=== PATIENT | male | born 1950 | race Hispanic/Latino ===

== ENCOUNTER → 2019-01-24 | Outpatient (CLI) | payer MEDICARE ==
[~2019-01-24] MED LIST: AMLO5TAB9 PO; ASPI-555 PO; CILO50TA PO; CLOP75TA32 PO; HYDR25TA PO; ISOS30TA6 PO; METO-409 PO; PARI1CAP3 PO; SIMV40TA59 PO; TAMS0.4C32 PO
--- NOTE | 2019-01-24 10:00 | NUR ---
MBSS COMPLETED. DEEP NON-TRANSIENT PENETRATION WITH THIN LIQUIDS. RECOMMEND MECHANICAL SOFT/GROUND, NECTAR-THICK LIQUIDS; PILLS WHOLE WITH LIQUIDS. PATIENT INFORMATION: Pt IS A 68 YEAR OLD MALE REFERRED FOR AN MBSS SECONDARY TO COUGHING WITH THIN LIQUIDS. Pt ACCOMPANIED BY SISTER DURING THE EVALUATION. Pt REPORTS THAT HE COUGHS WHEN HE DRINKS LIQUIDS AND FEELS ITCHY SENSATION. 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 PLEASE NOTE Pt IS EDENTULOUS AND COMPLETED MBSS WITH NO DENTURES IN PLACE. SISTER STATES THAT IN THE HOME Pt IS GIVEN SOFT SOLIDS TO COMPENSATE FOR POOR DENTITION. MBSS INTERPRETATION: Pt PRESENTS WITH MODERATE PHARYNGEAL DYSPHAGIA CAUSED BY DECREASED TONGUE BASE RETRACTION, DELAYED PHARYNGEAL RESPONSE AND DECREASED LARYNGEAL ADDUCTION, E/B POOLING IN THE VALLECUL[place] WITH MILD RESIDUE (CLEARED WITH LIQUID WASH). RESULTING IN DEEP NON-TRANSIENT PENETRATION (SILENT-NO COUGH RESPONSE OR THROAT CLEAR). OBSERVATION: NARROWING WITHIN PHARYNX, ALLOWING BOLUS TRANSIT. CHIN TUCK ATTEMPTED AND NOT SUCCESSFUL. TRIALS: 1. TSP PUREED: GOOD 2. TSP PUDDING: GOOD 3. MIXED: DIFFICULTY MASTICATING WITH NO DENTITION IN PLACE 4. THIN LIQUIDS VIA CUP SIP: DEEP NON-TRANSIENT PENETRATION 5. THIN LIQUIDS VIA CUP SIP WITH CHIN TUCK: DEEP PENETRATION 6, NECTAR-THICK LIQUIDS VIA CUP SIP: GOOD RECOMMENDATIONS: 1. MECHANICAL SOFT/GROUND, NECTAR-THICK LIQUIDS; PILLS WHOLE WITH LIQUIDS 2. COMPENSATORY STRATEGIES: *SEATED AT 90 *SMALL BITES AND SIPS *NO STRAW *ALTERNATE BITES AND SIPS 3. SPEECH THERAPY TARGETING SWALLOWING. EDUCATION: PATIENT SCHEDULING MANAGER EDUCATED Pt AND SISTER ON RISKS AND CONSEQUENCES OF ASPIRATION. THEY WERE WERE PROVIDED WITH A WRITTEN HANDOUT OF RESULTS AND RECOMMENDATIONS. A CAN ON THICKENER WAS PROVIDED WITH INSTRUCTION ON HOW TO REACH NECTAR-THICK LIQUIDS. THEY VERBALIZED UNDERSTANDING AND COMPLIANCE WITH RECOMMENDATIONS. ALL QUESTIONS ANSWERED AT THIS TIME. G-CODES SWALLOWING: [id number] Addendum: 01/24/19 at 1517 by VENESSA CANALES, [facility] Amended: Links added.
== END | disposition home or self-care (01) ==
LOC: RAH 08:58
PROVIDERS: ATTEND Internal Medicine
DX: R13.13 Dysphagia, pharyngeal phase (principal); R63.3 Feeding difficulties; R05 Cough; E78.5 Hyperlipidemia, unspecified; I25.10 Atherosclerotic heart disease of native coronary artery without angina pectoris; I12.9 Hypertensive chronic kidney disease with stage 1 through stage 4 chronic kidney disease, or unspecified chronic kidney disease; E11.22 Type 2 diabetes mellitus with diabetic chronic kidney disease; N18.9 Chronic kidney disease, unspecified
CPT/HCPCS: 74230; 92611; G8996; G8997; G8998